=== PATIENT | female | born 1980 | race Caucasian/White ===

== ENCOUNTER 2019-12-09 13:33 | Emergency (ER) | payer OTHER ==
[~2019-12-09] VITALS: Ht 160 cm; Wt 61.3 kg
--- NOTE | 2019-12-09 14:06 | PHYS DOC ---
General Adult EDM: Chief Complaint: FOOT INJURY PAIN HPI: HPI: The history was obtained from the patient. Patient is a 39-year-old female with no reported PMH who presents with a chief complaint of left foot temperature change. Patient states 2 days ago she was diagnosed with a left fourth metatarsal fracture. She states that she was given a walking boot and discharged home. She states that she also has had some ankle pain and they did not evaluate her ankle at that time. However today she states that her greater concern is that her foot seems cool to touch. States she has tried warming it up without success. She denies any pain of her left foot or ankle when she is not ambulating. She does think that her toes have slight blue discoloration. Denies any history of peripheral vascular disease. Denies any tobacco abuse. Has tried Tylenol Motrin at home with some relief of her pain. She states she spoke with her primary care physician who encouraged her to report to the emergency department for further evaluation. She again reiterates that she has no pain except for when she ambulates. No other complaints. Review of Systems: Review of Systems: Constitutional: Denies fever or chills Eyes: Denies change in visual acuity HENT: Denies nasal congestion or sore throat Respiratory: Denies cough or shortness of breath Cardiovascular: Denies chest pain or edema GI: Denies abdominal pain, nausea, vomiting, bloody stools or diarrhea : Denies dysuria Musculoskeletal: Left ankle pain and swelling Integument: Left foot cool to touch Neurologic: Denies headache, focal weakness or sensory changes Endocrine: Denies polyuria or polydipsia Lymphatic: Denies swollen glands Psychiatric: Denies depression or anxiety Heart Score: Risk Factors: Risk Factors: DM, Current or recent (<one month) smoker, HTN, HLP, family history of CAD, obesity. Risk Scores: Score 0 - 3: 2.5% MACE over next 6 weeks - Discharge Home Score 4 - 6: 20.3% MACE over next 6 weeks - Admit for Clinical Observation Score 7 - 10: 72.7% MACE over next 6 weeks - Early Invasive Strategies Physical Exam: PE: Constitutional: Well developed, well nourished, no acute distress, non-toxic appearance. [] HENT: Normocephalic, atraumatic, bilateral external ears normal, oropharynx moist, no oral exudates, nose normal. [] Eyes: PERRLA, EOMI, conjunctiva normal, no discharge. [] Neck: Normal range of motion, no tenderness, supple, no stridor. [] Cardiovascular:Heart rate regular rhythm, no murmur [] Lungs & Thorax: Bilateral breath sounds clear to auscultation [] Abdomen: soft, no tenderness, no masses, no pulsatile masses. [] Skin: Warm, dry, no erythema, no rash. [] Back: No tenderness, no CVA tenderness. [] Extremities: Left ankle with swelling around the lateral medial malleolus. Tenderness palpation of the fourth metatarsal. Plantar flexion dorsiflexion intact. Plus 2 out of 4 DP pulse on the left. Skin cool to touch. Very slight blue discoloration of the toes throughout. Neurologic: Alert and oriented X 3, normal motor function, normal sensory function, no focal deficits noted. [] Psychologic: Affect normal, judgement normal, mood normal. [] Current Patient Data: Labs: Laboratory Tests Test 12/09/19 14:25 12/09/19 14:36 White Blood Count 5.1 x10^3/uL Red Blood Count 4.25 x10^6/uL Hemoglobin 12.9 g/dL Hematocrit 38.3 % Mean Corpuscular Volume 90 fL Mean Corpuscular Hemoglobin 30 pg Mean Corpuscular Hemoglobin Concent 34 g/dL Red Cell Distribution Width 12.7 % Platelet Count 136 x10^3/uL Neutrophils (%) (Auto) 56 % Lymphocytes (%) (Auto) 36 % Monocytes (%) (Auto) 6 % Eosinophils (%) (Auto) 2 % Basophils (%) (Auto) 0 % Neutrophils # (Auto) 2.9 x10^3uL Lymphocytes # (Auto) 1.8 x10^3/uL Monocytes # (Auto) 0.3 x10^3/uL Eosinophils # (Auto) 0.1 x10^3/uL Basophils # (Auto) 0.0 x10^3/uL Prothrombin Time 10.8 SEC Prothromb Time International Ratio 1.0 Activated Partial Thromboplast Time 24 SEC Sodium Level 138 mmol/L Potassium Level 3.4 mmol/L Chloride Level 102 mmol/L Carbon Dioxide Level 27 mmol/L Anion Gap 9 Blood Urea Nitrogen 17 mg/dL Creatinine 0.8 mg/dL Estimated GFR (Cockcroft-Gault) 80.3 Glucose Level 92 mg/dL Lactic Acid Level 1.0 mmol/L Calcium Level 9.0 mg/dL Bedside Urine HCG, Qualitative hcg negative Current Medications Medications (Trade) Dose Ordered Sig/Vane Route PRN Reason Start Time Stop Time Status Last Admin Dose Admin Iohexol (Omnipaque 350 Mg/ml) 100 ml 1X ONCE IV 12/09/19 14:15 12/09/19 14:17 DC 12/09/19 14:34 Vital Signs: Vital Signs Date Time Temp Pulse Resp B/P (MAP) Pulse Ox O2 Delivery O2 Flow Rate FiO2 12/09/19 14:46 97.9 84 16 114/70 (85) 99 Room Air EKG: EKG: [] Radiology/Procedures: Radiology/Procedures: [address] [address] IMAGING REPORT Signed PATIENT: HAYDER OSEGUERA ACCOUNT: [id number] : 1980 LOCATION: ER AGE: 39 SEX: F EXAM STATUS: REG ER ORD. PHYSICIAN: ANITA CHAUDHRY DO REASON: L ankle pain PROCEDURE: ANKLE LEFT 3V FOOT LEFT 3V, ANKLE LEFT 3V 12/09/2019 2:02 PM INDICATION: Left ankle pain COMPARISON: None available. TECHNIQUE: 3 views of the left ankle and 3 views the left foot are provided. FINDINGS/ IMPRESSION: There is soft tissue swelling along the lateral ankle. Tibial plafond and talar dome are intact. Ankle mortise is congruent. No fracture or dislocation is identified. Tarsals, metatarsals and phalanges are intact. No significant soft tissue abnormality involving the foot. No subcutaneous gas or osseous erosion. No radiopaque foreign density. Electronically signed by: Bryan Kyle MD (12/09/2019 2:21 PM) [facility] DICTATED AND SIGNED BY: BRYAN KYLE MD DATE: 12/09/19 142 CC: PCP,NO; ANITA CHAUDHRY DO ~ [address] [address] IMAGING REPORT Signed PATIENT: HAYDER OSEGUERA ACCOUNT: [id number] : 1980 LOCATION: ER AGE: 39 SEX: F EXAM STATUS: REG ER ORD. PHYSICIAN: ANITA CHAUDHRY DO REASON: L foot coolness to touch. PROCEDURE: CT ANGIO LOWER EXTREMITY LEFT CT angiography left lower extremity hip to foot with contrast PQRS statement: CT scans at this facility use dose reduction including either automated exposure control, iterative reconstructions, and /or weight based radiation dosing via mA and kV modification when appropriate to reduce radiation dose to as low as reasonably achievable. HISTORY: Left foot coolness to the touch. TECHNIQUE: CT imaging left lower extremity hip to foot with 80 mL Omnipaque 300 intravenous contrast and 3-D volume reconstructions of the arteries acquired. FINDINGS: Small volume of low-density free fluid within the pelvis and cul-de-sac in a young patient of this age most likely due to recent ovulation or ovarian cyst rupture. Visualized pelvic structures otherwise unremarkable. The leg soft tissues and bones are unremarkable. There is mild soft tissue edema at the ankle and foot. No plaque, thrombus, dissection, aneurysm, stenosis or occlusion of the aortic bifurcation, left common iliac artery, left external and internal iliac arteries, common femoral artery, profunda femoral artery, superficial femoral artery, and popliteal artery. The trifurcation is patent at the upper calf. Peroneal artery patent to the ankle providing some collaterals to the ankle and foot. Anterior tibial artery patent to the dorsalis pedis at the foot. Posterior tibial artery patent to the foot. IMPRESSION: Normal left lower extremity CT angiography. Left ankle and foot soft tissue edema. Electronically signed by: Enedelia Petit MD (12/09/2019 3:28 PM) [facility] [place] SIGNED BY: ENEDELIA PETIT MD DATE: 12/09/19 1528 CC: PCP,NO; ANITA CHAUDHRY DO ~ [] Course & Med Decision Making: Course & Med Decision Making Pertinent Labs and Imaging studies reviewed. (See chart for details) [] Patient is an overall well-appearing 39-year-old female who presents with chief complaint of left foot and ankle coolness to touch. She denies any pain at all when she is not bearing weight on the area. She states she is otherwise comfortable. Physical exam grossly unremarkable. There is some coolness to touch. Appropriate capillary refill. Palpable pulses by my examination. Repeat plain film imaging of the left ankle and foot was obtained. No obvious fracture identified. Labs were obtained were grossly unremarkable. Given the significant difference in temperature of the left foot compared to the right foot CTA imaging was obtained reveals no vascular abnormality. She has no risk factors for peripheral vascular disease as well. Repeat examination her coolness to touch has improved. No asymmetric swelling appreciated. No increased erythema or pain to the posterior calf. Patient was updated with results of labs and imaging. I do feel she is appropriate for discharge home with close outpatient follow-up. She is agreeable to this. Instructed to follow-up with her primary care physician in the next 2 to 3 days. Return precautions discussed and understood. Stable for discharge home. [place] Disclaimer: [place]on Disclaimer: This electronic medical record was generated, in whole or in part, using a voice recognition dictation system. Departure Departure: Impression: Primary Impression: Cool skin Additional Impression: Left ankle pain Qualified Codes: M25.572 - Pain in left ankle and joints of left foot Disposition: 01 HOME/RESIDENCE PRIOR TO ADM Condition: STABLE Referrals: PCP,NAOMI (PCP) DANI CHATMAN MD Patient Instructions: Ankle Sprain Additional Instructions: Please follow-up with your primary care physician in the next 2 to 3 days. Scripts Ibuprofen (IBUPROFEN) 200 Mg Tablet 600 MG PO QIDPRN PRN for PAIN, #15 TAB Prov: ANITA CHAUDHRY DO 12/09/19 Justification of Admission: Justification of Admission: Justification of Admission Dx: N/A ANITA CHAUDHRY DO Dec 09, 2019 14:06
[2019-12-09] MEDS ORDERED: IOHEXOL 350 MG/ML 100 ML VIAL. IV ONE (14:15)
--- NOTE | 2019-12-09 14:24 | RAD ---
FOOT LEFT 3V, ANKLE LEFT 3V 12/09/2019 2:02 PM INDICATION: Left ankle pain COMPARISON: None available. TECHNIQUE: 3 views of the left ankle and 3 views the left foot are provided. FINDINGS/ IMPRESSION: There is soft tissue swelling along the lateral ankle. Tibial plafond and talar dome are intact. Ankle mortise is congruent. No fracture or dislocation is identified. Tarsals, metatarsals and phalanges are intact. No significant soft tissue abnormality involving the foot. No subcutaneous gas or osseous erosion. No radiopaque foreign density. Electronically signed by: Xiomara Cleaning MD (12/09/2019 2:21 PM) DANIELA
[2019-12-09 14:46] VITALS: BP 114/70
[2019-12-09 14:54] LABS: BASO % 0 % (0-3); EOS # 0.1 x10^3/uL (0.0-0.7); EOS % 2 % (0-3); HEMATOCRIT 38.3 % (36.0-47.0); HEMOGLOBIN 12.9 g/dL (12.0-15.5); LYMPH # 1.8 x10^3/uL (1.0-4.8); LYMPH % 36 % (24-48); MEAN CORPUSCULAR HEMOGLOBIN 30 pg (25-35); MEAN CORPUSCULAR HGB CONC 34 g/dL (31-37); MEAN CORPUSCULAR VOLUME 90 fL (79-100); MONO # 0.3 x10^3/uL (0.0-1.1); MONO % 6 % (0-9); NEUT # 2.9 x10^3uL (1.8-7.7); NEUT % 56 % (31-73); PLATELET COUNT 136 x10^3/uL (140-400); RED BLOOD COUNT 4.25 x10^6/uL (3.50-5.40); RED CELL DISTRIBUTION WIDTH 12.7 % (11.5-14.5); WHITE BLOOD COUNT 5.1 x10^3/uL (4.0-11.0)
[2019-12-09 15:08] LABS: CREATININE 0.8 mg/dL (0.6-1.0); GFR 80.3; POTASSIUM 3.4 mmol/L (3.5-5.1)
--- NOTE | 2019-12-09 15:31 | RAD ---
CT angiography left lower extremity hip to foot with contrast PQRS statement: CT scans at this facility use dose reduction including either automated exposure control, iterative reconstructions, and /or weight based radiation dosing via mA and kV modification when appropriate to reduce radiation dose to as low as reasonably achievable. HISTORY: Left foot coolness to the touch. TECHNIQUE: CT imaging left lower extremity hip to foot with 80 mL Omnipaque 300 intravenous contrast and 3-D volume reconstructions of the arteries acquired. FINDINGS: Small volume of low-density free fluid within the pelvis and cul-de-sac in a young patient of this age most likely due to recent ovulation or ovarian cyst rupture. Visualized pelvic structures otherwise unremarkable. The leg soft tissues and bones are unremarkable. There is mild soft tissue edema at the ankle and foot. No plaque, thrombus, dissection, aneurysm, stenosis or occlusion of the aortic bifurcation, left common iliac artery, left external and internal iliac arteries, common femoral artery, profunda femoral artery, superficial femoral artery, and popliteal artery. The trifurcation is patent at the upper calf. Peroneal artery patent to the ankle providing some collaterals to the ankle and foot. Anterior tibial artery patent to the dorsalis pedis at the foot. Posterior tibial artery patent to the foot. IMPRESSION: Normal left lower extremity CT angiography. Left ankle and foot soft tissue edema. Electronically signed by: Curtis Petit MD (12/09/2019 3:28 PM) [facility]
[2019-12-09] MEDS ORDERED: IBUP-1673 PO (15:50)
== END 2019-12-09 16:00 | disposition home or self-care (01) ==
LOC: ER 13:33
DX: M25.572 Pain in left ankle and joints of left foot (principal); M79.672 Pain in left foot; R22.42 Localized swelling, mass and lump, left lower limb
CPT/HCPCS: 36415; 73610; 73630; 73706; 80048; 81025; 83605; 85025; 85610; 85730; 99285; Q9967